=== PATIENT | female | born 2000 | race African-American/Black ===

== ENCOUNTER 2024-12-08 12:57 | Outpatient (OUT) | payer OTHER, SELFPAY ==
[2024-12-08 13:28] LABS: Basophils Absolute Auto 0.1 10^3/uL (0.0-0.1); Basophils Percent Auto 0.8 % (0.2-2.0); Eosinophils Absolute Auto 0.8 10^3/uL (0.0-0.7); Eosinophils Percent Auto 7.7 % (0.9-7.0); Hemoglobin 14.1 g/dL (12.0-16.0); Immature Granulocytes Abs Auto 0.02 10^3/uL (0.00-0.03); Immature Granulocytes Pct Auto 0.2 % (0.0-0.5); Lymphocytes Absolute Auto 2.3 10^3/uL (1.2-3.8); Lymphocytes Percent Auto 23.5 % (20.5-60.0); Mean Corpuscular HGB Conc 33.6 g/dL (29.9-35.2); Mean Corpuscular Hemoglobin 29.3 pg (26.7-34.0); Mean Corpuscular Volume 87.1 fL (81.0-99.0); Mean Platelet Volume 9.8 fL (9.5-13.5); Monocytes Absolute Auto 0.6 10^3/uL (0.3-0.8); Monocytes Percent Auto 6.1 % (1.7-12.0); Neutrophils Percent Auto 61.7 % (43.0-75.0); Platelet Count 362 10^3/uL (150-450); Red Blood Count 4.82 10^6/uL (4.20-5.40); Red Cell Distribution Width 12.7 % (11.0-15.0); White Blood Count 9.7 10^3/uL (4.0-11.0)
[2024-12-08 14:05] LABS: Alanine Aminotransferase 15 U/L (14-59); Albumin Level 3.7 g/dL (3.4-5.0); Alkaline Phosphatase 114 U/L (46-116); Anion Gap 10.6; Aspartate Amino Transferase 12 U/L (15-37); BUN Creatinine Ratio 8.8; Bilirubin Total 0.5 mg/dL (0.2-1.0); Calcium 9.3 mg/dL (8.5-10.1); Carbon Dioxide 30.7 mmol/L (21.0-32.0); Chloride 104 mmol/L (98-107); Chol HDL Ratio 2.8; Cholesterol 162 mg/dL (<=200); Estimated GFR (African America >60 (>=60 mL/min/1.73m^2); Estimated GFR (Non-African Ame >60 (>=60 mL/min/1.73m^2); Globulin 3.7 g/dL; Glucose 81 mg/dL (74-106); HDL Cholesterol 58 mg/dL (40-60); LDL Cholesterol Calculated 88.8 mg/dL; Potassium 4.3 mmol/L (3.5-5.1); Sodium 141 mmol/L (136-145); TSH W/ REFLEX FT4 1.193 uIU/mL (0.358-3.740); Total Protein 7.4 g/dL (6.4-8.2); Triglycerides 76 mg/dL (<=150); VLDL CHOLESTEROL 15.2 mg/dL
== END 2024-12-08 12:58 | disposition home or self-care (01) ==
DX: Z79.899 Other long term (current) drug therapy (principal)
CPT/HCPCS: 36415; 80053; 80061; 82306; 82728; 84443; 85025

== ENCOUNTER 2024-12-14 16:53 | Emergency (ER) | payer OTHER, SELFPAY ==
--- OUTSIDE RECORDS SUMMARY | 2024-12-14 17:04 | XMS_ITS | CCD ---
Author Organization [facility] Care Team Providers Care Aviation Project Manager Name Role Phone Jessica Mckeon Primary Care Physician Unavaila Jessica Puente Unavailable Unavailable Medications Completed/Discontinued Medications Medication Drug Class(es) Dates Sig (Normalized) Sig (Original) amphetamine aspartate 2.5 mg / amphetamine sulfate 2.5 mg / dextroamphetamine saccharate 2.5 mg / dextroamphetamine sulfate 2.5 mg oral tablet (1 source) Central Nervous System Stimulant take 1 tablet by mouth once daily before breakfast Adderall 10 mg tablet take 1 tablet (10 mg) by oral route once daily before breakfast 12 hr buPROPion hydrochloride 100 mg extended release oral tablet (1 source) Aminoketone take 1 tablet by mouth twice daily Wellbutrin SR 100 mg tablet, 12 hr sustained-release take 1 tablet (100 mg) by oral route 2 times per day cetirizine hydrochloride 10 mg oral tablet (1 source) Histamine-1 Receptor Antagonist take 1 tablet by mouth once daily Zyrtec 10 mg tablet take 1 tablet (10 mg) by oral route once daily escitalopram 20 mg oral tablet (1 source) Serotonin Reuptake Inhibitor take 1 tablet by mouth once daily Lexapro 20 mg tablet take 1 tablet (20 mg) by oral route once daily Problems Problem Classification Problem Date Documented Date Episodic/Chronic Other inflammatory condition of skin (1 source) 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 [id number] Unknown [id number] 01.02. [id number] Additional Source Comments FOR RECORDS PERTAINING TO PATIENTS WHO ARE OR HAVE BEEN ENROLLED IN A CHEMICAL DEPENDENCY/SUBSTANCEABUSE PROGRAM, SOME INFORMATION MAY BE OMITTED. This clinical summary was aggregated from multiple sources. Caution should be exercised in using it in the provision of clinical care. This summary normalizes information from multiple sources, and as a consequence, information in this document may materially change the coding, format and clinical context of patient data. In addition, data may be omitted in some cases. CLINICAL DECISIONS SHOULD BE BASED ON THE PRIMARY CLINICAL RECORDS. [facility]. provides no warranty or guarantee of the accuracy or completeness of information in this document.
[2024-12-14 17:20] VITALS: BP 123/83; PULSE 76; TEMP 37.1; O2SAT 100; BMI 29.5
--- NOTE | 2024-12-14 17:33 | CT_ITS ---
The [address] [address] Patient Name: DAMIAN CUNNINGHAM MRN: [id number] date: 2000 Sex: F Assigned Patient Location: ER Current Patient Location: ED.MAIN Accession/Order Number: [id number] Exam Date: 12/14/2024 17:55 Report Date: 12/14/2024 18:54 At the request of: SANJU SPARKS Procedure: CT head/brain wo con EXAM: CT head/brain wo con HISTORY: Headache, photosensitivity, nausea, dizziness. COMPARISON: 12/26/2022. TECHNIQUE: Unenhanced transaxial tomographic sections obtained from the vertex through the posterior fossa. FINDINGS: No midline shift, mass effect or intracranial hemorrhage. The mastoid air cells are clear. Mucosal thickening within the bilateral ethmoidal air cells. CT/CT head/brain wo con IMPRESSION: No acute intracranial process is identified. Electronically authenticated by: HANNA CHAVEZ Date: 12/14/2024 18:54
--- NOTE | 2024-12-14 17:34 | ED.GENADUL1 ---
HPI HPI - General Adult General Chief complaint: Headache Stated complaint: headache, nausea Time Seen by Provider: 12/14/24 16:55 Source: patient Mode of arrival: Wheelchair History of Present Illness HPI narrative: Patient is a 24-year-old female who presents to the emergency department for evaluation of a bitemporal headache that began several hours ago. She states it came on abruptly. She has had floaters in her vision but no blurred or double vision. She denies any falls or injuries. No recent flulike illness. She reports nausea and photosensitivity but has not had any neck pain, peripheral paresthesias, vomiting or diarrhea. She has no concern for . She took 2 Advil prior to arrival. Related Data Home Medications ?Medication ?Instructions ?Recorded ?Confirmed cetirizine 10 mg tablet (Zyrtec) 10 mg PO BID PRN allergy symptoms 12/14/24 12/14/24 clonazepam 1 mg tablet 1 mg PO DAILY 12/14/24 12/14/24 diphenhydramine HCl 50 mg capsule 50 mg PO Q8H PRN allergic reaction 12/14/24 12/14/24 fluoxetine 40 mg capsule (Prozac) 40 mg PO DAILY 12/14/24 12/14/24 hydroxyzine HCl 25 mg tablet 25 mg PO DAILY PRN sleep 12/14/24 12/14/24 Previous Rx's ?Medication ?Instructions ?Recorded ketorolac 10 mg tablet 10 mg PO TID PRN pain #10 tabs 12/14/24 ondansetron 4 mg disintegrating 4 mg PO Q6H PRN nausea and 12/14/24 tablet vomiting #12 tabs Allergies Allergy/AdvReac Type Severity Reaction Status Date / Time No Known Drug Allergies Allergy Verified 12/14/24 17:20 Opioid HPI Opioid Management Most Recent Opioid Data: No Data to Display Review of Systems ROS Constitutional Denies: fever or chills Eyes Reports: floaters; Denies: blurry vision Ears, nose, mouth, and throat Denies: neck pain Respiratory Denies: shortness of breath or cough Gastrointestinal Reports: nausea; Denies: vomiting Musculoskeletal Denies: back pain or neck pain Integumentary/Breast Denies: rash Neurological Denies: headache, numbness in extremities or weakness in extremities Hematologic/Lymphatic Denies: easy bruising or easy bleeding PFSH PFSH Social History Little interest or pleasure in doing things: several days Feeling down, depressed, or hopeless: several days Exam Narrative Exam Narrative: Gen.: Awake, alert, in no distress, photophobic Head: Normocephalic, atraumatic ENT: Moist mucous membranes, no nuchal rigidity or meningismus Respiratory: No respiratory distress Extremities: Moves extremities equally Psych: Normal mood and affect Neuro: No focal neuro deficit Skin: Warm, dry, intact Constitutional Vital Signs, click to edit/add: Last Vital Signs Temp 98.7 F 12/14/24 17:20 Pulse 76 12/14/24 17:20 Resp 18 12/14/24 17:20 BP 123/83 12/14/24 17:20 Pulse Ox 100 12/14/24 17:20 O2 Del Method Room Air 12/14/24 17:20 Course Vital Signs Vital signs: Vital Signs Temperature 98.7 F 12/14/24 17:20 Pulse Rate 76 12/14/24 17:20 Respiratory Rate 18 12/14/24 17:20 Blood Pressure 123/83 12/14/24 17:20 Pulse Oximetry 100 12/14/24 17:20 Oxygen Delivery Method Room Air 12/14/24 17:20 Temperature 98.7 F 12/14/24 17:20 Pulse Rate 76 12/14/24 17:20 Respiratory Rate 18 12/14/24 17:20 Blood Pressure 123/83 12/14/24 17:20 Pulse Oximetry 100 12/14/24 17:20 Oxygen Delivery Method Room Air 12/14/24 17:20 Medical Decision Making MDM Narrative Medical decision making narrative: Patient was treated with IV fluids, Reglan, Benadryl, Decadron. Labs are unremarkable, sed rate is normal. CT of the brain shows no evidence of acute intracranial process. Patient is hemodynamically stable, discharged with Zofran as needed for nausea and Toradol for headache for home. Follow-up with PCP and return to the ER if symptoms change or worsen SHARED APC VISIT, PHYSICIAN ATTESTATION: [id number] I performed a substantive part of the MDM during the patient?s E/M visit. I personally evaluated and examined the patient. I personally made or approved the documented management plan and acknowledge its risk of complications. Medical Records Medical records reviewed: Yes I reviewed the patient's medical records Lab Data Lab results reviewed: Yes I reviewed the patient's lab results Labs: Lab Results 12/14/24 Range/Units 17:40 WBC 12.5 H (4.0-11.0) 10^3/uL RBC 4.49 (4.20-5.40) 10^6/uL Hgb 13.3 (12.0-16.0) g/dL Hct 38.4 (36.0-48.0) % MCV 85.5 (81.0-99.0) fL MCH 29.6 (26.7-34.0) pg MCHC 34.6 (29.9-35.2) g/dL RDW 12.2 (11.0-15.0) % Plt Count 304 (150-450) 10^3/uL MPV 10.5 (9.5-13.5) fL Neut % (Auto) 71.8 (43.0-75.0) % Lymph % (Auto) 16.1 L (20.5-60.0) % [place] % (Auto) 7.1 (1.7-12.0) % Eos % (Auto) 4.2 (0.9-7.0) % Baso % (Auto) 0.6 (0.2-2.0) % Neut # (Auto) 9.0 H (1.4-6.5) 10^3/uL Lymph # (Auto) 2.0 (1.2-3.8) 10^3/uL [place] # (Auto) 0.9 H (0.3-0.8) 10^3/uL Eos # (Auto) 0.5 (0.0-0.7) 10^3/uL Baso # (Auto) 0.1 (0.0-0.1) 10^3/uL Abs Immat Gran (auto) 0.03 (0.00-0.03) 10^3/uL Imm/Tot Granulo (auto) 0.2 (0.0-0.5) % ESR 8 (<=20) mm/hr Sodium 137 (136-145) mmol/L Potassium 3.3 L (3.5-5.1) mmol/L Chloride 103 (98-107) mmol/L Carbon Dioxide 26.8 (21.0-32.0) mmol/L Anion Gap 10.5 BUN 9.0 (7.0-18.0) mg/dL Creatinine 1.08 H (0.55-1.02) mg/dL Est GFR ( Amer) >60 (>=60 mL/min/1.73m^2) Est GFR (Non-Af Amer) >60 (>=60 mL/min/1.73m^2) BUN/Creatinine Ratio 8.3 Glucose 78 (74-106) mg/dL Calcium 8.8 (8.5-10.1) mg/dL C-Reactive Protein 2.27 H (<=0.50) mg/dL Imaging Data CT scan - head: Attestation: I have reviewed the pertinent imaging results. Radiologist's impression: ITS Impressions Head CT 12/14/24 17:33 IMPRESSION: No acute intracranial process is identified. Electronically authenticated by: HANNA CHAVEZ Date: 12/14/2024 18:39 Discharge Plan Discharge Chief Complaint: Headache Clinical Impression: Headache Patient Disposition: Home, Self-Care Time of Disposition Decision: 18:43 Condition: Good Prescriptions / Home Meds: New ketorolac 10 mg tablet 10 mg PO TID PRN (Reason: pain) Qty: 10 0RF ondansetron 4 mg tablet,disintegrating 4 mg PO Q6H PRN (Reason: nausea and vomiting) Qty: 12 0RF No Action fluoxetine [Prozac] 40 mg capsule 40 mg PO DAILY clonazepam 1 mg tablet 1 mg PO DAILY hydroxyzine HCl 25 mg tablet 25 mg PO DAILY PRN (Reason: sleep) cetirizine [Zyrtec] 10 mg tablet 10 mg PO BID PRN (Reason: allergy symptoms) diphenhydramine HCl 50 mg capsule 50 mg PO Q8H PRN (Reason: allergic reaction) Print Language: Qatari Instructions: General Headache (ED) Referrals: Physician,Non-Staff, MD [Primary Care Provider] - 1 week
[2024-12-14] MEDS: DIPHENHYDRAMINE HCL 50 MG/ML VIAL 25 MG IV (17:43)
[2024-12-14] MEDS: METOCLOPRAMIDE HCL 10 MG/2 ML VIAL IVP (17:43)
[2024-12-14] MEDS: 0.9 % SODIUM CHLORIDE 1,000 ML 999 ML IV (17:43)
[2024-12-14] MEDS: DEXAMETHASONE SOD PHOS 10 MG/ML VIAL IV (17:43)
[2024-12-14 18:04] LABS: Basophils Absolute Auto 0.1 10^3/uL (0.0-0.1); Basophils Percent Auto 0.6 % (0.2-2.0); Eosinophils Absolute Auto 0.5 10^3/uL (0.0-0.7); Eosinophils Percent Auto 4.2 % (0.9-7.0); Hematocrit 38.4 % (36.0-48.0); Hemoglobin 13.3 g/dL (12.0-16.0); Immature Granulocytes Abs Auto 0.03 10^3/uL (0.00-0.03); Immature Granulocytes Pct Auto 0.2 % (0.0-0.5); Lymphocytes Percent Auto 16.1 % (20.5-60.0); Mean Corpuscular HGB Conc 34.6 g/dL (29.9-35.2); Mean Corpuscular Hemoglobin 29.6 pg (26.7-34.0); Mean Corpuscular Volume 85.5 fL (81.0-99.0); Mean Platelet Volume 10.5 fL (9.5-13.5); Monocytes Absolute Auto 0.9 10^3/uL (0.3-0.8); Monocytes Percent Auto 7.1 % (1.7-12.0); Neutrophils Percent Auto 71.8 % (43.0-75.0); Platelet Count 304 10^3/uL (150-450); Red Blood Count 4.49 10^6/uL (4.20-5.40); Red Cell Distribution Width 12.2 % (11.0-15.0); White Blood Count 12.5 10^3/uL (4.0-11.0)
[2024-12-14 18:15] LABS: Erythrocyte Sedimentation Rate 8 mm/hr (<=20)
[2024-12-14 18:16] LABS: Anion Gap 10.5; BUN Creatinine Ratio 8.3; C Reactive Protein 2.27 mg/dL (<=0.50); Calcium 8.8 mg/dL (8.5-10.1); Carbon Dioxide 26.8 mmol/L (21.0-32.0); Chloride 103 mmol/L (98-107); Estimated GFR (African America >60 (>=60 mL/min/1.73m^2); Estimated GFR (Non-African Ame >60 (>=60 mL/min/1.73m^2); Glucose 78 mg/dL (74-106); Potassium 3.3 mmol/L (3.5-5.1); Sodium 137 mmol/L (136-145)
== END 2024-12-14 18:59 | disposition home or self-care (01) ==
PROVIDERS: Physician Assistant; Emergency Provider Emergency Medicine; PCP Physician Assistant
DX: R51.9 Headache, unspecified (principal)
CPT/HCPCS: 36415; 70450; 80048; 85025; 85652; 86140; 96374; 96375; 99285; J1100; J1200; J2765

== ENCOUNTER 2025-01-27 22:51 | Emergency (ER) | payer OTHER, SELFPAY ==
--- OUTSIDE RECORDS SUMMARY | 2025-01-27 22:57 | XMS_ITS | CCD ---
Author Organization [facility] Care Team Providers Care Personal Coach Name Role Phone Jessica Mckeon Primary Care [...] ne w 45 minutes Jessica Mckeon Other [facility] Office Procedures Date Procedure Procedure Detail Performing Clinician Start: 05-27-2023 Docrev cur meds by danae [place] [facility] Payers Date Payer Category Payer Policy ID Medicaid [id number] . [id number] Unknown [id number] 01.02. [id number] Additional Source Comments FOR RECORDS PERTAINING TO [...] BE BASED ON THE PRIMARY CLINICAL RECORDS. [facility]. provides no warranty or guarantee of the accuracy or completeness of information in this document.
[2025-01-27 23:09] VITALS: BP 114/75; PULSE 84; TEMP 36.9; O2SAT 98; BMI 29.2
--- NOTE | 2025-01-27 23:15 | ED.GENADUL1 ---
HPI HPI - General Adult General Chief complaint: Shortness of Breath/Dyspnea Stated complaint: SOB Time Seen by Provider: 01/27/25 22:54 Source: patient Mode of arrival: walk-in Limitations: no limitations History of Present Illness HPI narrative: This 24-year-old female presents with chief complaint of shortness of breath. She has a history of asthma and uses albuterol inhaler on a weekly basis. She does not have it with her today since she accidentally left it at work. She denies any infectious symptoms or concerns about . She states her symptoms are usually triggered by allergies and change of season. She is not a cigarette smoker. Related Data Home Medications ?Medication ?Instructions ?Recorded ?Confirmed cetirizine 10 mg tablet (Zyrtec) 10 mg PO BID PRN allergy symptoms 12/14/24 12/14/24 clonazepam 1 mg tablet 1 mg PO DAILY 12/14/24 12/14/24 diphenhydramine HCl 50 mg capsule 50 mg PO Q8H PRN allergic reaction 12/14/24 12/14/24 fluoxetine 40 mg capsule (Prozac) 40 mg PO DAILY 12/14/24 12/14/24 hydroxyzine HCl 25 mg tablet 25 mg PO DAILY PRN sleep 12/14/24 12/14/24 Previous Rx's ?Medication ?Instructions ?Recorded ketorolac 10 mg tablet 10 mg PO TID PRN pain #10 tabs 12/14/24 ondansetron 4 mg disintegrating 4 mg PO Q6H PRN nausea and 12/14/24 tablet vomiting #12 tabs albuterol sulfate 90 mcg/actuation 2 inh inhalation Q6H PRN shortness 01/28/25 aerosol inhaler of breath or wheezing #8.5 grams beclomethasone dipropionate 80 1 inh inhalation QAM #10.6 grams 01/28/25 mcg/actuation HFA breath activated aerosol (Qvar RediHaler) prednisone 20 mg tablet 40 mg (2 x 20 mg) PO DAILY 5 days 01/28/25 #10 tabs Allergies Allergy/AdvReac Type Severity Reaction Status Date / Time No Known Drug Allergies Allergy Verified 01/27/25 23:09 Opioid HPI Opioid Management Most Recent Opioid Data: No Data to Display Review of Systems ROS Status of ROS 10 or more systems reviewed and unremarkable except as noted in history and below PFSH PFSH Social History Little interest or pleasure in doing things: not at all Feeling down, depressed, or hopeless: not at all Exam Narrative Exam Narrative: Vital signs stable. Patient does not appear acutely ill. HEENT exam is normal to inspection. Neck is supple. Auscultation of the lungs reveals high-pitched rhonchi in the upper and middle zones anteriorly as well as posteriorly. There are no rales. She has fairly good air entry. Heart has regular rate and rhythm. S1 and S2 are normal. Abdomen is protuberant, soft nontender. There is no organomegaly. She does not have calf tenderness. Speech and mentation are clear and intact. She moves all extremities actively. There is no facial asymmetry. Constitutional Vital Signs, click to edit/add: Last Vital Signs Temp 98.4 F 01/27/25 23:09 Pulse 84 01/27/25 23:42 Resp 18 01/27/25 23:42 BP 114/75 01/27/25 23:09 Pulse Ox 98 01/27/25 23:42 O2 Del Method Room Air 01/27/25 23:35 Course Vital Signs Vital signs: Vital Signs Temperature 98.4 F 01/27/25 23:09 Pulse Rate 84 01/27/25 23:09 Respiratory Rate 20 01/27/25 23:09 Blood Pressure 114/75 01/27/25 23:09 Pulse Oximetry 98 01/27/25 23:09 Oxygen Delivery Method Room Air 01/27/25 23:09 Temperature 98.4 F 01/27/25 23:09 Pulse Rate 84 01/27/25 23:42 Respiratory Rate 18 01/27/25 23:42 Blood Pressure 114/75 01/27/25 23:09 Pulse Oximetry 98 01/27/25 23:42 Oxygen Delivery Method Room Air 01/27/25 23:35 Medical Decision Making MDM Narrative Medical decision making narrative: Patient presents with worsening of asthma symptoms. She has no infectious focus. She has cleared up nicely after a DuoNeb aerosol treatment and feels well enough to go home. She states she has also used Qvar in the past and ROM: Prescribing Qvar and albuterol inhaler for her. I am also placing her on prednisone 40 mg daily for 5 days. Discharge Plan Discharge Chief Complaint: Shortness of Breath/Dyspnea Clinical Impression: Asthma with acute exacerbation Qualifiers: Asthma severity: mild Asthma persistence: intermittent Qualified Code(s): J45.21 - Mild intermittent asthma with (acute) exacerbation Patient Disposition: Home, Self-Care Time of Disposition Decision: 00:06 Condition: Good Mode of Transportation: Private Vehicle Prescriptions / Home Meds: New Qvar RediHaler 80 mcg/actuation HFA aerosol breath activated 1 inh inhalation QAM Qty: 10.6 0RF Rx Instructions: administer with spacer albuterol sulfate 90 mcg/actuation HFA aerosol inhaler 2 inh inhalation Q6H PRN (Reason: shortness of breath or wheezing) Qty: 8.5 2RF prednisone 20 mg tablet 40 mg PO DAILY 5 Days Qty: 10 0RF No Action fluoxetine [Prozac] 40 mg capsule 40 mg PO DAILY clonazepam 1 mg tablet 1 mg PO DAILY hydroxyzine HCl 25 mg tablet 25 mg PO DAILY PRN (Reason: sleep) cetirizine [Zyrtec] 10 mg tablet 10 mg PO BID PRN (Reason: allergy symptoms) diphenhydramine HCl 50 mg capsule 50 mg PO Q8H PRN (Reason: allergic reaction) ketorolac 10 mg tablet 10 mg PO TID PRN (Reason: pain) Qty: 10 0RF ondansetron 4 mg tablet,disintegrating 4 mg PO Q6H PRN (Reason: nausea and vomiting) Qty: 12 0RF Print Language: Andorran Instructions: Asthma (ED) Additional Instructions: Medications as prescribed. Follow-up with your physician within a week. Return for worsening symptoms. Referrals: Manpreet Walters PA [Primary Care Provider] - 1 week Discharge Date/Time: 01/28/25 00:18
[2025-01-27] MEDS: PREDNISONE 20 MG TABLET 40 MG PO (23:21)
[2025-01-27 23:35] VITALS: PULSE 86; O2SAT 98
[2025-01-27] MEDS: IPRATROPIUM/ALBUTEROL SULFATE 3 ML AMPUL.NEB IH (23:35)
[2025-01-27 23:42] VITALS: PULSE 84; O2SAT 98
--- NOTE | 2025-01-28 00:17 | PC.NURSE ---
i gave this patient verbal and written discharge orders along with 3 e-scripts and this patient voices yes to understanding these. at time of discharge this patient voices no concerns and shows no signs of distress
== END 2025-01-28 00:18 | disposition home or self-care (01) ==
PROVIDERS: Emergency Provider Emergency Medicine; PCP Physician Assistant
DX: J45.21 Mild intermittent asthma with (acute) exacerbation (principal)
CPT/HCPCS: 94640; 99283; J7512